=== PATIENT | female | born 1940 | race American Indian/Alaskan Native ===

== ENCOUNTER 2018-10-31 19:02 | Emergency (ER) | payer MEDICARE ==
[2018-10-31 19:47] LABS: Hemoglobin 14.2 gm/dl (10.1-14.3); Mean Corpuscular HGB Conc 33 % (30-34); Mean Corpuscular Volume 102 fl (79-97); Platelet Count 301 K/mm3 (140-440); Red Blood Count 4.22 M/mm3 (3.65-5.03); Red Cell Distribution Width 13.5 % (13.2-15.2)
[2018-10-31 19:57] LABS: BUN/Creatinine Ratio 13; Blood Urea Nitrogen 9 mg/dL (7-17); Calcium 10.1 mg/dL (8.4-10.2); Hemolysis Index 10
--- NOTE | 2018-10-31 20:45 | Cat Scan Report ---
FINAL REPORT EXAM: CT HEAD/BRAIN WO CON HISTORY: head injury. FELL, HIT RT SIDE OF HEAD/FACE. PT SEEMED CONFUSED, SO INFO CAME FROM . TECHNIQUE: CT head without contrast PRIORS: None. FINDINGS: No acute intra-axial or extra-axial hemorrhage is identified. There is no evidence of midline shift or mass effect. The ventricles and sulci are within normal limits. Boswell-white matter differentiation is intact. No acute parenchymal abnormalities seen. Bony calvarium is grossly intact. Visualized portions of the mastoids and paranasal sinuses are unre markable. IMPRESSION: Negative CT head
--- NOTE | 2018-10-31 20:48 | Cat Scan Report ---
FINAL REPORT EXAM: CT CERVICAL SPINE WO CON HISTORY: head injury. FELL, HIT RT SIDE OF HEAD/FACE. PT SEEMED CONFUSED, SO INFO CAME FROM . TECHNIQUE: CT cervical spine with reconstructions PRIORS: None. FINDINGS: Vertebral bodies demonstrate normal height and alignment. Th there is degenerative disc space narrow ing with marginal anterior osteophyte C5-C6 and C6-C7. The facet joints demonstrate normal alignment. The spinous processes are intact. Craniocervical junction is unremarkable. C1 and C2 are intact. IMPRESSION: Degenerative disc disease at C5-C6 and C6-C7 No acute traumatic abnormality identified.
[2018-10-31 21:13] LABS: RBC Morphology Normal; Total Cells Counted 100
--- NOTE | 2018-10-31 21:14 | Emergency Department Report ---
ED Fall HPI - General Chief Complaint: Fall Stated Complaint: FALL, POSS HEAD INJURY Time Seen by Provider: 10/31/18 20:18 Source: patient Mode of arrival: Ambulatory - History of Present Illness Initial Comments: 77-year-old female with history of dementia who presents to ED for evaluation following fall. Patient fell at home earlier this morning. Unknown LOC. Patient's passed her in the room while he went to make breakfast. After making breakfast he went to check on patient and she had fallen, breaking her dentures. She hasn't states patient has been her normal self since the fall. States patient does not converse much due to her dementia. However, she has asked multiple times what happened to her dentures. states daughter suggested tonight that take patient to an urgent care to get her checked out. The patient was taken to urgent care and advised him to the ED for CT scan. Patient denies headache or any other pain. Denies nausea or vomiting. MD Complaint: fall -: This morning When Fall Occurred: other (this morning) Fall Witnessed: no Place Fall Occurred: home Loss of Consciousness: other (unknown) Prolonged Down Time?: no Location: head, face, mouth Severity: moderate Associated Symptoms: denies: headache, neck pain, chest paint, abdominal pain - Related Data Home Medications Medication Instructions Recorded Confirmed Last Taken Donepezil HCl 10 mg PO DAILY 01/24/16 03/15/16 03/14/16 09:00 Oxybutynin Chloride [Ditropan Xl] 5 mg PO QDAY 01/24/16 03/15/16 03/14/16 09:00 Allergies Allergy/AdvReac Type Severity Reaction Status Date / Time No Known Allergies Allergy Unverified 03/12/16 11:53 ED Review of Systems ROS: Stated complaint: FALL, POSS HEAD INJURY Other details as noted in HPI Comment: Unobtainable due to pts medical conditions (dementia) ED Past Medical Hx - Past Medical History Hx Arthritis: Yes Hx Dementia: Yes Hx HIV: No Additional medical history: Vertigo - Surgical History Past Surgical History?: Yes Additional Surgical History: Right Knee replacement, Hysterectomy - Social History Smoking Status: Never Smoker Substance Use Type: None - Medications Home Medications: Home Medications Medication Instructions Recorded Confirmed Last Taken Type Donepezil HCl 10 mg PO DAILY 01/24/16 03/15/16 03/14/16 09:00 History Oxybutynin Chloride [Ditropan Xl] 5 mg PO QDAY 01/24/16 03/15/16 03/14/16 09:00 History ED Physical Exam - General Limitations: No Limitations General appearance: alert, in no apparent distress - Head Head exam: Present: other (mild swelling to left face) - Eye Eye exam: Present: normal appearance, PERRL, EOMI - ENT ENT exam: Present: other (abrasion to lower lip) - Neck Neck exam: Present: normal inspection. Absent: tenderness - Respiratory Respiratory exam: Present: normal lung sounds bilaterally. Absent: respiratory distress - Cardiovascular Cardiovascular Exam: Present: regular rate, normal rhythm - GI/Abdominal GI/Abdominal exam: Present: soft. Absent: distended, tenderness - Extremities Exam Extremities exam: Present: normal inspection - Neurological Exam Neurological exam: Present: alert, altered (baseline for patient per ) - Psychiatric Psychiatric exam: Present: normal affect, normal mood - Skin Skin exam: Present: warm, dry, intact, normal color ED Course Vital Signs 10/31/18 10/31/18 10/31/18 19:13 19:16 20:36 Temperature 98.9 F 98.9 F 97.7 F Pulse Rate 66 66 84 Respiratory 18 18 16 Rate Blood Pressure 125/48 125/48 Blood Pressure 141/50 [Right] O2 Sat by Pulse 99 99 100 Oximetry 10/31/18 11/01/18 21:06 00:00 Temperature 97.8 F Pulse Rate 80 Respiratory 16 16 Rate Blood Pressure Blood Pressure 138/52 [Right] O2 Sat by Pulse 100 100 Oximetry ED Medical Decision Making - Lab Data Result diagrams: 10/31/18 19:30 10/31/18 19:30 - EKG Data -: EKG Interpreted by [facility] EKG shows normal: sinus rhythm, axis, intervals, QRS complexes, ST-T waves Rate: normal - EKG Data Interpretation: no acute changes - Radiology Data Radiology results: report reviewed, image reviewed - Medical Decision Making 78 yo female s/p fall at home. reports some repetitive questioning from patient in regards to her dentures. states otherwise, her behavior and mental status is at baseline. Pt has history of dementia. CT head and c-spine both normal, no signs of injury. Will discharge at this time. given return precautions. Advised outpatient follow-up. - Differential Diagnosis concussion, intracranial bleed, contusion Critical care attestation.: If time is entered above; I have spent that time in minutes in the direct care of this critically ill patient, excluding procedure time. ED Disposition Clinical Impression: Closed head injury, Concussion Disposition: DC-01 TO HOME OR SELFCARE Is pt being admited?: No Condition: Stable Instructions: Concussion (ED) Referrals: PRIMARY CARE, [Referring] - 3-5 Days Time of Disposition: 22:31
[2018-10-31 22:00] LABS: Bacteria,Urine 2+ /HPF (Negative); Bilirubin,Urine NEG (Negative); Blood,Urine NEG (Negative); Color,Urine Yellow (Yellow); Mucus,Urine FEW /HPF; Protein,Urine <15 mg/dL mg/dL (Negative); Urobilinogen,Urine < 2.0 mg/dL (<2.0)
[2018-11-01 00:09] VITALS: BP 138/52
== END 2018-11-01 | disposition home or self-care (01) ==
LOC: ED 19:02
DX: S06.0X9A Concussion with loss of consciousness of unspecified duration, initial encounter (principal); M19.90 Unspecified osteoarthritis, unspecified site; F03.90 Unspecified dementia, unspecified severity, without behavioral disturbance, psychotic disturbance, mood disturbance, and anxiety; W18.30XA Fall on same level, unspecified, initial encounter; Y93.89 Activity, other specified; Y92.098 Other place in other non-institutional residence as the place of occurrence of the external cause; Y99.8 Other external cause status
CPT/HCPCS: 36415; 70450; 72125; 80048; 81001; 85007; 85025; 93005; 93010